=== PATIENT | female | born 1955 | race Caucasian/White ===

== ENCOUNTER 2017-02-11 14:46 | Emergency (ER) | payer BC, OTHER ==
[2017-02-11 15:36] VITALS: BP 149/84
--- NOTE | 2017-02-11 16:28 | RAD ---
Indication: RIGHT ankle pain post twisting fall. Lateral aspect pain and pain with ambulation. Comparison: No relevant prior exams available on the [facility] PACS for comparison. Technique: AP, mortise, and lateral views RIGHT ankle. REPORT AND IMPRESSION: Grossly nondisplaced avulsion fracture from the caudal margin of the lateral malleolus. No additional fracture or articular malalignment. Talocrural joint effusion and significant soft tissue swelling over the lateral malleolus.
--- NOTE | 2017-02-11 16:58 | UC ---
Lower Extremity/Ankle HPI - HPI Summary HPI Summary: 61 year old female with ankle pain . Here w/ RIGHT ankle pain from 1400 today. States pt was out for a walk when she tripped and felt her RIGHT ANKLE snap as she fell. States painful to ambulate and was only able to get back home using walking stick. Has iced it in waiting room. Pain in lateral aspect of RIGHT ankle. [ End ] - History of Current Complaint Chief Complaint: UCLowerExtremity Stated Complaint: RIGHT ANKLE INJURY Time Seen by Provider: 02/11/17 15:34 Hx Obtained From: Patient, Family/Dermatologist Managing Partner Onset/Duration: Sudden Onset Severity Initially: Moderate - Allergies/Home Medications Allergies/Adverse Reactions: Allergies Allergy/AdvReac Type Severity Reaction Status Date / Time Sulfa Antibiotics Allergy Rash Verified 02/11/17 15:29 dtap vaccine Allergy See Comment Uncoded 02/11/17 15:29 Home Medications: Home Medications NK [No Home Medications Reported] 02/11/17 [History Confirmed 02/11/17] PMH/Surg Hx/FS Hx/Imm Hx Previously Healthy: Yes - Surgical History Surgical History: Yes Surgery Procedure, Year, and Place: Tubal Ligation, D&C - Family History Known Family History: Negative: Cardiac Disease, Hypertension, Diabetes - Social History Occupation: Employed Full-time Lives: With Family Alcohol Use: None Substance Use Type: None Smoking Status (MU): Never Smoked Tobacco - Immunization History Most Recent Influenza Vaccination: NOT YET 2016 Most Recent Tetanus Shot: June 2014 Review of Systems Musculoskeletal: Arthralgia, Decreased ROM, Edema All Other Systems Reviewed And Are Negative: Yes Physical Exam Triage Information Reviewed: Yes Appearance: Well-Appearing, Pain Distress - moderate Vital Signs: Initial Vital Signs Temp 97.2 F 02/11/17 15:30 Pulse 68 02/11/17 15:30 Resp 18 02/11/17 15:30 BP 149/84 02/11/17 15:30 Pulse Ox 99 02/11/17 15:30 Vital Signs Reviewed: Yes Eye Exam: Normal Neck exam: Normal Respiratory Exam: Normal Cardiovascular Exam: Normal Musculoskeletal: Positive: ROM Limited @ - right ankle with movement in any plane or direction., Edema @, Other: - right lateral malleolus with moderate effusion and pain to palpation. no lateral foot pain. can move toes. neg homans. no break in skin . no erythema. Neurological Exam: Normal Psychological Exam: Normal Skin Exam: Normal Lower Extremity Course/Dx - Course Course Of Treatment: declined crutches. non weight bearing. refer to ortho. - Differential Dx/Diagnosis Differential Diagnosis/HQI/PQRI: Fracture (Closed), Sprain, Strain Provider Diagnoses: ankle fracture right Discharge - Discharge Plan Condition: Good Disposition: HOME Patient Education Materials: Ankle Fracture (ED) Referrals: Shireen Prather PA [Primary Care Provider] - If Needed Quang Clement MD [Medical Doctor] - 5 Days (Ortho referral )
== END 2017-02-11 16:54 | disposition home or self-care (01) ==
LOC: UCCORT 14:46
DX: S82.64XA Nondisplaced fracture of lateral malleolus of right fibula, initial encounter for closed fracture (principal); W01.0XXA Fall on same level from slipping, tripping and stumbling without subsequent striking against object, initial encounter; Y93.01 Activity, walking, marching and hiking; Y92.9 Unspecified place or not applicable; Z88.2 Allergy status to sulfonamides; Z88.7 Allergy status to serum and vaccine
CPT/HCPCS: 99213; G0463

== ENCOUNTER 2018-03-08 17:32 | Emergency (ER) | payer BC, OTHER ==
[2018-03-08 18:48] VITALS: BP 169/104
--- NOTE | 2018-03-08 19:01 | UC ---
Ear Complaint HPI - HPI Summary HPI Summary: Patient presents with progressive right ear pain. Patient states she had some sinus pressure on the right frontal maxillary sinus this week. Patient took Sudafed with mild improvement. Patient states she's had recurrent ear infections her whole life. Patient reports history of tympanic membrane rupture. No ear tubes. Patient denies fevers or chills. Patient states or 3: 00 pain got significantly worse. Patient states she's been doing heat and gentle massage trying to get her ears to "pop" without success prepay patient unsure whether or not she took Aleve prior to coming tonight. Patient denies sore throat. Patient has been around sick contacts. Patient denies chest pain , shortness of breath, wheeze. No abdominal pain. No nausea vomiting. Patient was awakened without difficulty. Patient has applied heat with mild improvement. Patient's medications reviewed this visit. Patient does have markedly of the blood pressure. Patient states it goes up and down. Discussed with patient concerns or Sudafed related to blood pressure. - History of Current Complaint Chief Complaint: UCEar Stated Complaint: EAR COMPLAINT Time Seen by Provider: 03/08/18 18:49 Hx Obtained From: Patient Onset/Duration: Gradual Onset Severity Initially: Moderate Severity Currently: Moderate Pain Intensity: 7 Pain Scale Used: 0-10 Numeric - Allergies/Home Medications Allergies/Adverse Reactions: Allergies Allergy/AdvReac Type Severity Reaction Status Date / Time Sulfa (Sulfonamide Allergy Rash Verified 03/08/18 18:41 Antibiotics) dtap vaccine Allergy See Comment Uncoded 02/11/17 15:29 Home Medications: Home Medications Naproxen Sodium [Aleve] 220 mg PO ONCE 03/08/18 [History Confirmed 03/08/18] Pseudoephedrine HCl [Sudafed] 30 mg PO DAILY 03/08/18 [History Confirmed ] PMH/Surg Hx/FS Hx/Imm Hx - Additional Past Medical History Additional PMH: recurrent ear infections, tympanostomy tube ruptures Previously Healthy: Yes Cardiovascular History: Hypertension - Surgical History Surgical History: Yes Surgery Procedure, Year, and Place: Tubal Ligation, D&C - Family History Known Family History: Positive: Other - non contributory Negative: Cardiac Disease, Hypertension, Diabetes - Social History Lives: With Family Alcohol Use: None Substance Use Type: None Smoking Status (MU): Never Smoked Tobacco - Immunization History Most Recent Influenza Vaccination: NOT YET 2016 Most Recent Tetanus Shot: June 2014 Review of Systems ENT: Ear Ache, Nasal Discharge, Sinus Congestion, Sinus Pain/Tenderness All Other Systems Reviewed And Are Negative: Yes Physical Exam - Summary Physical Exam Summary: Vital Signs Reviewed: Yes A+Ox3, obvious discomfort Eyes: Conjunctiva Clear, ALEXANDRA. EOM intact and full ENT: Hearing grossly right TM ++ fluid, erythema left TM wnl + TTP max sinuses R turbinates inflammed, + PND uvula midline, no exudate, no erythema Neck: Positive: Supple Respiratory: Positive: No respiratory distress, No accessory muscle use + CTA throughout no w/r Cardiovascular: RRR nl s1, s2 no m/r CBT <2 sec abd soft + BS nt/nd no guarding, no distension Musculoskeletal Exam: HART x 4 without difficulty Strength Intact, ROM Intact Neurological: Positive: Alert, + sensation throughout Psychological: Positive: Normal Response To Family Skin: Positive: no rash, no ecchymosis Triage Information Reviewed: Yes Vital Signs: Initial Vital Signs Temp 97.1 F 03/08/18 18:37 Pulse 68 03/08/18 18:37 Resp 17 03/08/18 18:37 BP 169/104 03/08/18 18:37 Pulse Ox 100 03/08/18 18:37 Ear Complaint Course/Dx - Course Course Of Treatment: Patient presents with progressive sinus congestion and right ear pain. Patient obvious discomfort with the he packed her ear. Patient with right otitis media on exam. Patient also with clinical sinusitis. TM intact. We'll prescribe antibiotics and Flonase. Recommend patient recurred. Cautioned patient with significant blood pressure. Patient has a follow-up appointment scheduled with her primary this week. Return precautions discussed. Patient states she gets yeast infection typically can ordered. Patient comfortable in agreement with plan. - Differential Dx/Diagnosis Provider Diagnoses: right OM Discharge - Sign-Out/Discharge Documenting (check all that apply): Patient Departure All imaging exams completed and their final reports reviewed: No Studies - Discharge Plan Condition: Stable Disposition: HOME Prescriptions: Amoxicillin PO (*) [Amoxicillin 500 MG CAP*] 500 mg PO Q12H #20 cap Fluconazole [Diflucan 150 MG (NF)] 150 mg PO ONCE PRN #1 tab PRN Reason: vaginal yeast infection Fluticasone NASAL SPRAY 50MCG* [Flonase NASAL SPRAY 50MCG*] 2 spray BOTH NARES DAILY #1 btl Patient Education Materials: Ear Infection (ED) Referrals: Shireen Prather PA [Primary Care Provider] - Additional Instructions: - Stay well hydrated. Drink plenty of non-alcoholic, non-caffinated beverages. - Alternate ibuprofen (Advil, Motrin) 600mg and Tylenol every 3 hours for pain or fever. Take with food. Do NOT take for more than 4-5 days. - These infections are spread by secretions - do NOT share eating or drinking utensils - clean items you share with other people such as cell phones, computer mouse, TV remote, computer tablets,etc. Once you have been antibiotics for 2 days, change your toothbrush and your pillowcase. - get plenty of restful sleep - humidify the air in the room where you sleep - boil water, run a hot steam shower, vaporizer, cups of water by heat register - okay to take over the counter decongestant and cough medication - consider taking Claritin as the decongestant (Sudafed, psuedoephederine) causes an increased in blood pressure - use nasal spray as prescribed - contact your doctor or return with questions or concerns - Billing Disposition and Condition Condition: STABLE Disposition: Home
[2018-03-08] MEDS ORDERED: Acetaminophen TAB* 325 MG PO ONE (19:12)
== END 2018-03-08 19:27 | disposition home or self-care (01) ==
LOC: UCCORT 17:32
DX: H66.91 Otitis media, unspecified, right ear (principal); I10 Essential (primary) hypertension; Z88.1 Allergy status to other antibiotic agents; Z88.8 Allergy status to other drugs, medicaments and biological substances
CPT/HCPCS: 99212; A9270-GY; G0463

== ENCOUNTER 2019-05-25 11:14 | Emergency (ER) | payer BC, OTHER ==
[2019-05-25 13:01] VITALS: BP 148/100
--- NOTE | 2019-05-25 13:07 | UC ---
Ear Complaint HPI - HPI Summary HPI Summary: 64 year old female with ear complaint . 05/16/19 patient began with right ear pain. That evening she heard a pop and had slight drainage with some relief. 05/23/19 pain was increasing and sore throat started. Now left ear is full and warm. patient states she gets numerous ear infections. When she had slight drainage it was a purulent smell she states. She has had no dizziness but some decreased hearing in the right ear. No fevers but she does feel off balance and states she did trip and fall 2 days ago. Resting improve symptoms. Nothing worsens symptoms. - History of Current Complaint Chief Complaint: UCEar Stated Complaint: LEFT EAR PAIN Time Seen by Provider: 05/25/19 13:03 Hx Obtained From: Patient Severity Initially: Mild Severity Currently: Mild Pain Intensity: 3 Associated Signs/Symptoms: Positive: Discharge, Hearing Loss - Allergies/Home Medications Allergies/Adverse Reactions: Allergies Allergy/AdvReac Type Severity Reaction Status Date / Time Sulfa (Sulfonamide Allergy Rash Verified 05/25/19 12:55 Antibiotics) dtap vaccine Allergy See Comment Uncoded 05/25/19 12:55 PMH/Surg Hx/FS Hx/Imm Hx Previously Healthy: Yes Endocrine History: Hypothyroidism Cardiovascular History: Hypertension - Surgical History Surgical History: Yes Surgery Procedure, Year, and Place: Tubal Ligation, D&C - Family History Known Family History: Positive: Other - non contributory Negative: Cardiac Disease, Hypertension, Diabetes - Social History Alcohol Use: None Substance Use Type: None Smoking Status (MU): Never Smoked Tobacco - Immunization History Most Recent Influenza Vaccination: NOT YET 2017 Most Recent Tetanus Shot: June 2014 Review of Systems All Other Systems Reviewed And Are Negative: Yes ENT: Positive: Ear Ache, Nasal Discharge, Sinus Congestion Is Patient Immunocompromised?: No Physical Exam Triage Information Reviewed: Yes Appearance: Well-Appearing, No Pain Distress, Well-Nourished Vital Signs: Initial Vital Signs Temp 97.6 F 05/25/19 12:52 Pulse 76 05/25/19 12:52 Resp 15 05/25/19 12:52 BP 148/100 05/25/19 12:52 Pulse Ox 99 05/25/19 12:52 Vital Signs Reviewed: Yes Eye Exam: Normal ENT Exam: Normal ENT: Positive: Hearing grossly normal, Nasal drainage, TM bulging, TM dull, TM red - left Dental Exam: Normal Neck exam: Normal Neck: Positive: 1 Respiratory Exam: Normal Cardiovascular Exam: Normal Musculoskeletal Exam: Normal Neurological Exam: Normal Psychological Exam: Normal Skin Exam: Normal Ear Complaint Course/Dx - Course Course Of Treatment: patient with acute otitis media. Patient with ear drainage and concern for potential perforation. Advised to start oral and topical antibiotic drops. If any concern for hearing loss advised to go directly to ENT. Patient aware and agreeable to the plan as well as the side effects of the medications. If symptoms worsen go to emergency room. - Differential Dx/Diagnosis Differential Diagnosis/HQI/PQRI: Otitis Externa, Otitis Media, Perforated TM, URI Provider Diagnosis: AOM (acute otitis media) Discharge ED - Sign-Out/Discharge Documenting (check all that apply): Patient Departure All imaging exams completed and their final reports reviewed: No Studies - Discharge Plan Condition: Good Disposition: HOME Prescriptions: Amoxicillin PO (*) [Amoxicillin 875 MG (*)] 875 mg PO BID #20 tab Ofloxacin 0.3% (Ear Drop)* [Floxin 0.3% OTIC.SANTIAGO (Ear Drop)] 10 drop RIGHT EAR DAILY 7 Days #1 btl Patient Education Materials: Ear Infection (ED) Referrals: Shireen Prather PA [Primary Care Provider] - 4 Days - Billing Disposition and Condition Condition: GOOD Disposition: Home
== END 2019-05-25 13:30 | disposition home or self-care (01) ==
LOC: UCCORT 11:14
DX: H66.92 Otitis media, unspecified, left ear (principal); I10 Essential (primary) hypertension; R09.89 Other specified symptoms and signs involving the circulatory and respiratory systems; R09.81 Nasal congestion; Z88.2 Allergy status to sulfonamides; Z88.7 Allergy status to serum and vaccine
CPT/HCPCS: 99212; G0463